=== PATIENT | female | born 1980 | race Caucasian/White ===

== ENCOUNTER → 2017-01-07 | Outpatient (CLI) | payer MEDICAID ==
[~2017-01-07] MED LIST: HYDR-3240 PO; OMNIPAQUE 350 MG/ML, 100ML BOTTLE ONE; WARF5TAB7 PO
== END | disposition home or self-care (01) ==
LOC: CFH 13:17
PROVIDERS: ATTEND Surgery
DX: I77.79 Dissection of other specified artery (principal); I72.8 Aneurysm of other specified arteries
CPT/HCPCS: 74174; Q9967

== ENCOUNTER → 2017-10-14 | Outpatient (CLI) | payer MEDICAID | END | disposition home or self-care (01) | LOC: CFH 09:31 | PROVIDERS: ATTEND Surgery | DX: I77.79 Dissection of other specified artery (principal); I72.8 Aneurysm of other specified arteries; N28.89 Other specified disorders of kidney and ureter; G12.8 Other spinal muscular atrophies and related syndromes | CPT/HCPCS: 74175; Q9967 ==

== ENCOUNTER 2018-02-15 10:09 | Day surgery (SDC) | payer MEDICAID ==
[~2018-02-15] VITALS: Ht 160 cm; Wt 45.2 kg
[~2018-02-15 10:09] MED LIST changes: -WARF10TA PO; -WARF7.5T PO
[2018-02-15] MEDS ORDERED: LACTATED RINGERS 1,000 ML IV SCH (11:06)
[2018-02-15 11:07] VITALS: BP 141/95
[2018-02-15 11:41] VITALS: BP 114/75
[2018-02-15] MEDS ORDERED: ACETAMINOPHEN 500 MG TABLET PO ONE (12:00)
[2018-02-15] MEDS ORDERED: ONDANSETRON ODT 8 MG PO ONE (12:00)
[2018-02-15] MEDS ORDERED: OXYcodone IR 5MG TABLET PO ONE (12:00)
[2018-02-15] MEDS ORDERED: WARF10TA PO (12:26)
[2018-02-15] MEDS ORDERED: WARF7.5T PO (12:26)
[2018-02-15] MEDS ORDERED: MIDAZOLAM 1 MG/ML, 2ML ONE (12:44)
[2018-02-15] MEDS ORDERED: FENTANYL PF 100 MCG/2ML ONE (12:44)
[2018-02-15] MEDS ORDERED: PROPOFOL 10 MG/ML, 20ML ONE (12:45)
[2018-02-15] MEDS ORDERED: WATER-INJECTION,STERILE 10 ML IV ONE (12:49)
[2018-02-15] MEDS ORDERED: CEFAZOLIN 1,000 MG ONE ×2 (12:49)
[2018-02-15] MEDS ORDERED: BUPIVACAINE/PF 0.25% ONE (13:35)
[2018-02-15] MEDS ORDERED: EPINEPHRINE 1 MG/ML, 1ML ONE (13:35)
[2018-02-15] MEDS ORDERED: OXYTOCIN 10 UNITS/ML, 1ML ONE (13:35)
[2018-02-15] MEDS ORDERED: SILVER NITRATE STICK TP ONE (13:35)
[2018-02-15] MEDS ORDERED: MISOPROSTOL 200 MCG TABLET ONE (13:35)
[2018-02-15] MEDS ORDERED: METHYLERGONOVINE 0.2 MG/ML IM ONE (13:36)
[2018-02-15] MEDS ORDERED: DEXAMETHASONE 4 MG/ML, 1ML ONE ×2 (13:55→13:56)
[2018-02-15] MEDS ORDERED: HYDROcodone/APAP 7.5-325MG/15ML UDC PO PRN (14:30)
[2018-02-15] MEDS ORDERED: FENTANYL PF 100 MCG/2ML IV PRN (14:30)
[2018-02-15] MEDS ORDERED: morphine SULFATE 10 MG/ML, 1ML IV PRN (14:30)
[2018-02-15] MEDS ORDERED: ONDANSETRON 2MG/ML, 2ML IVPush PRN (14:30)
[2018-02-15] MEDS ORDERED: PROMETHAZINE 25 MG/ML, 1ML IV PRN (14:30)
[2018-02-15] MEDS ORDERED: OXYcodone 5 MG/5 ML ORAL.SOL UDC PO PRN (14:30)
[2018-02-15] MEDS ORDERED: KETOROLAC 30 MG/1 ML ONE (15:10)
== END 2018-02-15 17:00 ==
LOC: OUT 10:09
PROVIDERS: ATTEND Specialist
DX: O02.0 Blighted ovum and nonhydatidiform mole (principal)
CPT/HCPCS: 36415; 59812; 86901; 88305; J0690; J1100; J1885; J2250; J2704; J3010; J7120; Q0162; J0171; J3490; J2210; J2590

== ENCOUNTER → 2018-02-15 | Outpatient (CLI) | payer MEDICAID ==
[~2018-02-15] MED LIST changes: -OMNIPAQUE 350 MG/ML, 100ML BOTTLE ONE; +WARF-36 PO; +WARF10TA PO; -WARF5TAB7 PO; +WARF7.5T PO
== END ==
LOC: RAD 09:32
PROVIDERS: ATTEND Specialist
DX: R10.9 Unspecified abdominal pain (principal); M41.86 Other forms of scoliosis, lumbar region
CPT/HCPCS: 74022

== ENCOUNTER → 2020-11-11 | Outpatient (CLI) | payer MEDICAID ==
[~2020-11-11] MED LIST changes: +OMNIPAQUE 350 MG/ML, 100ML BOTTLE ONE; +WARF10TA PO; +WARF7.5T PO
== END | disposition home or self-care (01) ==
LOC: CFH 12:31
PROVIDERS: ATTEND Surgery
DX: I77.79 Dissection of other specified artery (principal); M41.84 Other forms of scoliosis, thoracic region; K80.20 Calculus of gallbladder without cholecystitis without obstruction
CPT/HCPCS: 71275; 74174; Q9967